=== PATIENT | female | born 1955 | race Caucasian/White ===

== ENCOUNTER → 2016-09-01 | Outpatient (CLI) | payer OTHER ==
--- NOTE | 2016-09-02 16:20 | MAM ---
History: Well woman exam. Date of exam: 09/01/2016 Services provided: Bilateral full field digital screening mammography. CAD, the images were reviewed with R2 computer aided detection. FINDINGS: Glandular tissue is scattered glandular tissue. No prior exam is currently available. No dominant mass, architectural distortion or clustered microcalcification. IMPRESSION: Benign exam. Recommendation: Routine annual exam. BIRAD CATEGORY: 2 BENIGN Electronically signed by: Elina Griffin MD 09/02/2016 4:19 PM CDT
== END | disposition home or self-care (01) ==
LOC: MAMMO 09:26
PROVIDERS: ATTEND Family Medicine
DX: Z12.31 Encounter for screening mammogram for malignant neoplasm of breast (principal)

== ENCOUNTER → 2018-05-17 | Outpatient (CLI) | payer MEDICARE, OTHER ==
--- NOTE | 2018-05-21 09:36 | MAM ---
EXAM DESCRIPTION: 3D Screening BILATERAL : Digital Mammography. CLINICAL HISTORY: 63 years Female ANNUAL SCREENING . No complaints no personal history of breast cancer. Remote family history of breast cancer. Childbirth. Postmenopausal 16 years no HRT. Lifetime risk of developing breast cancer (Tyrer-Cuzick model)(%): 6.9. COMPARISON: 2-D digital screening bilateral study 09/01/2016. TECHNIQUE: Bilateral CC and MLO projection full-field images, digital tomosynthesis mammographic technique. Bilateral digital 2-D full-field MLO images. CAD not available for tomosynthesis or 2-D images. FINDINGS: The breast parenchymal density pattern is: Scattered areas of fibroglandular density. No skin thickening or nipple retraction. Densest tissue anterior third of the breasts. No new focal, stellate mass or density, focal asymmetry , and no suspicious microcalcifications bilaterally. Stable mammograms compared to prior study. Taking into account, differences in mammographic technique. IMPRESSION: BI-RADS CATEGORY: 1 - NEGATIVE FOLLOW UP: Routine digital bilateral screening, one year interval from April 2018. Written communication explaining the findings and follow-up, will be mailed to the patient and referring health care provider. According to the [employer], yearly mammograms are recommended starting at age 40 and continuing as long as a woman is in good health. Any breast change noted on a breast self-exam should be reported promptly to the patient's healthcare provider. Breast MRI is recommended for women with an approximately 20-25% or greater lifetime risk of breast cancer, including women with a strong family history of breast or ovarian cancer and women who have been treated for Hodgkin's disease. A negative mammographic report should not delay tissue diagnosis in patients with significant clinical history or physical findings. Extremely dense breast tissue limits the sensitivity of digital mammography. Electronically signed by: Tani Stone MD 05/21/2018 9:34 AM [employer]
== END ==
LOC: MAMMO 11:24
PROVIDERS: ATTEND Family Medicine
DX: Z12.31 Encounter for screening mammogram for malignant neoplasm of breast (principal)

== ENCOUNTER → 2019-05-06 | Outpatient (CLI) | payer MEDICARE, OTHER | LOC: GMA MATASK 10:45 | PROVIDERS: ATTEND Family Medicine | DX: E78.2 Mixed hyperlipidemia (principal) ==

== ENCOUNTER → 2019-05-30 | Outpatient (CLI) | payer MEDICARE, OTHER ==
--- NOTE | 2019-05-31 11:56 | MRI ---
EXAM DESCRIPTION: Lumbar Spine w/o Contrast : Magnetic Resonance Imaging. CLINICAL HISTORY: RADICULOPATHY LUMBAR REGION COMPARISON: MRI scan thoracic spine noncontrast on the same visit. TECHNIQUE: Multiplanar, multiple standard sequences, non contrast MRI, lumbar spine. FINDINGS: L5-S1: The disc is well visualized on axial T2 series 501, image 3. Normal signal in the disc with disc space preserved. Trace midline posterior bulging. Bilateral shortened pedicles. Degenerative hypertrophy of the bilateral facet joints and posterior flavum ligaments (posterior elements). AP canal diameter 11 mm. Moderate to severe bilateral foraminal narrowing. L4-L5: Disc desiccation and moderate disc space loss. Minimal anterior end plate reactive changes anterior bulging and endplate ridging. Posterior broad-based 4 mm bulge abutting the thecal sac and descending nerve roots. Bilateral pedicle shortening. Bilateral hypertrophic degenerative of the posterior elements. AP canal diameter 11 mm. Moderate right foraminal narrowing and moderate to severe left foraminal narrowing. L3-L4: Disc desiccation with disc space maintained. Anterior bilateral disc bulging with anterior hyperintense annular fissure. Posterior broad-based bulge. Bilateral shortened pedicles. Degenerative hypertrophy of the posterior elements. AP canal diameter 12 mm. Moderate right foraminal narrowing and moderate to severe left foraminal narrowing. L2-L3: Disc desiccation with disc space maintained. Anterior bilateral disc bulge and endplate ridging. Posterior broad-based disc bulge slightly more to the right of midline. Bilaterally shortened pedicles. Minimal degenerative hypertrophy of the posterior elements. AP canal diameter 11.5 mm. Moderate left foraminal narrowing and mild to moderate right foraminal narrowing. L1-L2 disc desiccation and minimal disc space loss. Anterior broad-based disc bulge with endplate ridging and early endplate reactive changes. Posterior midline disc protrusion with superior and inferior migration more to the right of midline bilateral narrowing of the subarticular recesses. Bilaterally shortened pedicles. Minimal hypertrophic degenerative changes in the posterior elements. AP canal diameter 11 mm. Bilateral mild foraminal narrowing. Conus terminates at L1. T12-L1: Disc desiccation with anterior disc bulging. Trace anterolisthesis. Right posterior focal bulge or small protrusion 4-5 mm impressing on the right ventral thecal sac and abutting the descending right L1 nerve. Bilaterally shortened pedicles. Degenerative hypertrophy of the posterior elements. AP canal diameter 10 mm. Bilateral foramina are patent. Hypertrophic circumscribed T1 and T2 hemangiomas in the T11 and L1 vertebral bodies. Rudimentary disc space L1-L2. Anatomic curvature. Paravertebral soft tissues minimal paraspinal muscle atrophy.. Distal cord normal signal and caliber. Otherwise normal marrow signal in the remaining vertebral bodies and the posterior elements. Vertebral bodies are not compressed at any level. IMPRESSION: 1. Canal narrowing or borderline mild central canal stenosis at almost every level due to degenerative hypertrophy of the bilateral facet joints and posterior flavum ligaments and bilaterally shortened pedicles. Disc bulging or herniation also contributing at some levels. 2. Moderate central canal narrowing and moderate to severe bilateral foraminal narrowing at L5-S1. Correlate for bilateral L5 radiculopathy. 3. Moderate central canal narrowing at L4-L5 and moderate to severe left foraminal narrowing. Correlate for left L4 radiculopathy. 4. Moderate central canal narrowing at L3-L4 and moderate to severe left foraminal narrowing. Correlate for left L3 radiculopathy. Borderline mild central canal stenosis at T12-L1 with right posterior disc protrusion. Bilateral foramina are patent. Electronically signed by: Tani Stone MD 05/31/2019 11:54 AM [facility]
--- NOTE | 2019-05-31 12:37 | MRI ---
EXAM DESCRIPTION: Thoracic Spine w/o Contrast: Magnetic Resonance Imaging. CLINICAL HISTORY: RADICULOPATHY THORACIC REGION COMPARISON: MRI scan lumbar spine without contrast on the same visit. TECHNIQUE: Multiplanar, multiple standard sequences, non contrast MRI, thoracic spine. FINDINGS: T7-T8: Disc desiccation and minimal disc space loss with anterior moderate endplate reactive changes. Posterior disc herniation, 4 x 5 mm, in the midline with inferior extrusion in the midline into the left of midline. Impression of the cord most significant at the mid T8 vertebral body level with AP canal diameter 6.5 mm. No significant foraminal narrowing. T6-T7: Disc desiccation minimal disc space loss with anterior endplate reactive changes and disc bulge. 4 x 4 millimeter disc herniation with superior minimal extrusion impressing on the midline cord AP canal diameter 9 mm. Bilateral foramina are patent. T10-T11 disc space loss anterior bulging and endplate ridging. Left posterior 8 x 4 mm herniation impressing on the left ventral cord and the exiting left T10 nerve. Moderate canal narrowing. Disc also encroaching on the left foramen which is moderately narrowed with disc abutting the left T10 nerve. Circumscribed hyperintense T1 and T2 hemangioma superior T11 endplate. Small right posterior herniation of the T12-L1 disc 10 x 5 mm abutting the right ventral cord and the exiting right T12 nerve. Bilateral foramina are patent. Disc desiccation T4-T5 with moderate anterior bulging anterior moderate endplate reactive changes and spur formation.. Hypertrophic degeneration of the right facet narrowing the right foramen. T3-T4 disc desiccation with minimal posterior disc bulge abutting the cord. Mild canal and bilateral foraminal narrowing. T2-T3: Disc desiccation and minimal posterior bulge abutting the cord. Degenerative hypertrophy of the bilateral facet joints especially on the left with bilateral spurs impressing on the posterior lateral cord and narrowing of the left foramen. T9-T10 disc space loss anterior endplate moderate reactive changes and disc desiccation. Posterior 3 mm bulge into the canal and larger bulge into the left foramen which is severely narrowed. Disc abutting the exiting right T9 nerve. Moderate canal narrowing. Bilateral degenerative hypertrophic facets. Left foramen is patent. Remaining discs with normal signal. Disc spaces are preserved. Canal and foramina are patent. Facet joints are unremarkable. Conus terminates below the T12-L1 disc.. Cord with normal signal, no compression. No scoliosis. Paravertebral soft tissues are unremarkable. Otherwise normal marrow signal in the remaining vertebral bodies and the posterior elements. Vertebral bodies are not compressed at any level. IMPRESSION: 1. Multiple desiccated disc bulging or herniation. Also multiple levels of facet arthrosis and hypertrophy. Multiple levels of anterior disc space spondylosis. 2. T7-T8 disc herniation and extrusion below the disc space impressing on the ventral cord with moderate central canal stenosis. 3. T6-T7 disc herniation with superior extrusion of the disc and borderline mild canal stenosis. Bilateral foramina are patent. Disc possibly encroaching on the T6 nerve roots. 4. T10-T11 disc herniation impressing on the left ventral cord and the exiting left T10 nerve. 5. Right posterior herniation of the T12-L1 disc abutting the exiting right T12 nerve. 6. Degenerative hypertrophy of the left posterior facet joint at T2-T3 impressing on the posterior lateral corner narrowing the left foramen. 7. Posterior 3 mm bulge of the T9-T10 disc and disc severely narrowing the right foramen and abutting the exiting right T9 nerve. Electronically signed by: Tani Stone MD 05/31/2019 12:36 PM [facility]
== END ==
LOC: MRI 10:30
PROVIDERS: ATTEND Family Medicine
DX: M54.16 Radiculopathy, lumbar region (principal); M54.14 Radiculopathy, thoracic region; M51.34 Other intervertebral disc degeneration, thoracic region; M51.24 Other intervertebral disc displacement, thoracic region; M48.8X4 Other specified spondylopathies, thoracic region; M46.94 Unspecified inflammatory spondylopathy, thoracic region; M48.04 Spinal stenosis, thoracic region; M48.061 Spinal stenosis, lumbar region without neurogenic claudication; M48.07 Spinal stenosis, lumbosacral region

== ENCOUNTER → 2019-10-04 | Outpatient (CLI) | payer MEDICARE, OTHER | LOC: GMA MATASK 11:56 | PROVIDERS: ATTEND Family Medicine | DX: D51.9 Vitamin B12 deficiency anemia, unspecified (principal); E55.9 Vitamin D deficiency, unspecified; E11.9 Type 2 diabetes mellitus without complications ==

== ENCOUNTER 2019-12-02 05:35 | Day surgery (SDC) | payer MEDICARE, OTHER ==
[2019-12-02] MEDS ORDERED: MOXIFLOXACIN HCL (OPHTH) 1 DROP DROPS ONE (05:44)
[2019-12-02] MEDS ORDERED: TROP1%/CYCLOPEN 1%/PHENYL 2.5% DROPS ONE (05:44)
[2019-12-02] MEDS ORDERED: PROPARACAINE 0.5% OPHTH SOL 15 ML BTTL ONE (05:44)
[2019-12-02] MEDS ORDERED: PROPARACAINE 0.5% OPHTH SOL 15 ML BTTL LEFT_EYE ONE (08:08)
[2019-12-02] MEDS ORDERED: MIDAZOLAM INJ 2 MG/2 ML VIAL ONE ×2 (08:56→09:03)
[2019-12-02] MEDS ORDERED: LIDOCAINE 1% MPF 2 ML VIAL INJ ONE (09:00)
[2019-12-02] MEDS ORDERED: MOXIFLOXACIN HCL (OPHTH) 1 DROP DROPS LEFT_EYE ONE (09:10)
[2019-12-02] MEDS ORDERED: BRIMONIDINE 0.2% OPHTH DROPS LEFT_EYE ONE (09:12)
[2019-12-02] MEDS ORDERED: TOBRAMYCIN SULF 0.3 % OPHT SOL 1 DROP LEFT_EYE ONE (09:12)
[2019-12-02] MEDS ORDERED: DEXAMETHASONE 0.1% OPHTH SOL 1 DROP LEFT_EYE ONE (09:12)
== END 2019-12-02 10:00 | disposition home or self-care (01) ==
LOC: AMB 05:35
PROVIDERS: ATTEND Ophthalmology
DX: E11.36 Type 2 diabetes mellitus with diabetic cataract (principal); H25.13 Age-related nuclear cataract, bilateral; K21.9 Gastro-esophageal reflux disease without esophagitis; E66.9 Obesity, unspecified; Z79.899 Other long term (current) drug therapy; Z88.1 Allergy status to other antibiotic agents; Z79.84 Long term (current) use of oral hypoglycemic drugs
CPT/HCPCS: 00142; 36416; 66984; 82948; J2250